=== PATIENT | female | born 1965 | race Native Hawaiian/Other Pacific Islander ===

== ENCOUNTER 2018-04-01 16:32 | Observation (INO) | payer BC ==
[~2018-04-01] VITALS: Ht 165.1 cm; Wt 74.6 kg
[2018-04-01] VITALS (8 sets, daily range): BP systolic 136–206; BP diastolic 85–120; TEMP 98–98.2; Ht 165.1 cm; Wt 74.6 kg
[2018-04-01 17:03] LABS: POTASSIUM 3.2 mmol/L (3.6-5.2); SODIUM 140 mmol/L (136-145)
[2018-04-01 17:10] LABS: PLATELET COUNT 274 K/uL (152-353)
[2018-04-02] VITALS: BP 133/89; TEMP 98.2
[2018-04-02 04:00] VITALS: BP 122/73; TEMP 98.2
[2018-04-02 08:00] VITALS: BP 135/75; TEMP 98.4
== END 2018-04-02 12:40 | disposition short-term general hospital (02) ==
LOC: ED 16:32 → MED/SURG 19:42
PROVIDERS: ADMIT Family Medicine
DX: R07.89 Other chest pain (principal); R53.1 Weakness; M54.2 Cervicalgia; M25.519 Pain in unspecified shoulder
CPT/HCPCS: 36415; 80053; 82550; 84484; 85027; 85610; 85730; 93005; 94760; 96360; 96365; 96366; 96374; 99220; 99284; G0378; J2060; J2405

== ENCOUNTER 2018-04-02 13:09 | Outpatient (CLI) | payer BC | END 2018-04-02 14:25 | disposition short-term general hospital (02) | LOC: AMB 13:09 | DX: R07.89 Other chest pain (principal); R53.1 Weakness; M54.2 Cervicalgia; M25.519 Pain in unspecified shoulder | CPT/HCPCS: A0425; A0427 ==